=== PATIENT | female | born 1970 | race Caucasian/White ===

== ENCOUNTER 2024-03-25 15:25 | Emergency (ER) | payer OTHER, SELFPAY ==
[2024-03-25 15:42] VITALS: BP 113/67; PULSE 52; TEMP 37.1; O2SAT 99; BMI 23.0
--- NOTE | 2024-03-25 15:48 | XR_ITS ---
The [address] [address] Patient Name: CONRAD QUILES MRN: [id number] date: 1970 Sex: F Assigned Patient Location: ER Current Patient Location: ER Accession/Order Number: [id number] Exam Date: 03/25/2024 16:48 Report Date: 03/25/2024 17:36 At the request of: CARLO STANLEY Procedure: XR ribs RT min 3V w CXR1V EXAM: XR ribs RT min 3V w CXR1V HISTORY: pain right anterior/lateral rib pain. COMPARISON: Chest x-ray 11/17/2011 TECHNIQUE: Upright PA chest. AP, right and left oblique views right RIBS. 6 view series FINDINGS: Chest x-ray demonstrates clear lungs, normal heart size and mediastinum. No pleural effusion or pneumothorax. Elevated right diaphragm similar to previous. No fracture seen. Right rib views demonstrate smooth corticated margins without displaced fracture. No focal bone lesion. Also size ribs. XR/XR ribs RT min 3V w CXR1V IMPRESSION: Negative chest x-ray, no acute findings. Normal right ribs without displaced fracture. Electronically authenticated by: EMIL MCRAE Date: 03/25/2024 17:36
--- NOTE | 2024-03-25 16:48 | ED.EXTPRO1 ---
HPI - Extremity Problem General Chief complaint: Extremity Problem, Nontraumatic Stated complaint: BWC - SIDE PAIN Time Seen by Provider: 03/25/24 16:06 Source: patient Mode of arrival: walk-in Limitations: no limitations History of Present Illness HPI Narrative: The patient presented to the ER after she started having right-sided chest wall pain, almost 3 days ago and 22 March the patient was leaning on the boxes at work when apparently she mentioned that she started after that having pain in the right side of her chest wall whenever she take a deep breath No other complaint of chest pain nausea vomiting or any other concerns Related Data Previous Rx's ?Medication ?Instructions ?Recorded ibuprofen 600 mg tablet 600 mg PO Q8H PRN pain #20 tabs 03/25/24 Allergies Allergy/AdvReac Type Severity Reaction Status Date / Time No Known Drug Allergies Allergy Verified 03/25/24 15:46 Review of Systems ROS Status of ROS 10 or more systems reviewed and unremarkable except as noted in history and below Exam Narrative Exam Narrative: Nurses notes and vital signs reviewed and patient is not hypoxic. General: Well-appearing and in no apparent distress. Skin: Warm, dry, no pallor noted. No rash. Head: Normocephalic, atraumatic. Neck: Supple, non-tender. Eye: Pupils are equal, round and EOMI. No scleral icterus. Ears, Nose, Mouth, and Throat: TM are clear, no nasal mucosal hypertrophy. Oral mucosa is moist, no posterior oropharynx erythema, uvula is mid-line Cardiovascular: Regular Rate and Rhythm without murmur, gallop or rub. Respiratory: No accessory muscle use or respiratory distress. Lungs are clear to auscultation, no wheezing, rales or rhonchi Chest Wall: There is localized tenderness to the right-sided chest wall on the right lower no tenderness palpation of the right upper quadrant or any other concerns and the patient does not have any obvious skin changes due to trauma Back: No midline thoracic or lumbar vertebral tenderness. No CVA tenderness Musculoskeletal: normal ROM, no calf or popliteal tenderness, no lower extremity edema/swelling GI: Abdomen is soft, non-distended. Normal bowel sounds. No masses appreciated. No tenderness to palpation. No rebound, guarding, or rigidity noted. Neurological: A&O x4. No cranial nerve dysfunction observed. No truncal ataxia. Moves all extremities. Sensation intact. Psychiatric: Cooperative and interactive. Normal mood and affect. Constitutional Vital Signs, click to edit/add: Last Vital Signs Temp 98.7 F 03/25/24 15:42 Pulse 52 L 03/25/24 15:42 Resp 16 03/25/24 15:42 BP 113/67 03/25/24 15:42 Pulse Ox 99 03/25/24 15:42 O2 Del Method Room Air 03/25/24 15:42 Course Vital Signs Vital signs: Vital Signs Temperature 98.7 F 03/25/24 15:42 Pulse Rate 52 L 03/25/24 15:42 Respiratory Rate 16 03/25/24 15:42 Blood Pressure 113/67 03/25/24 15:42 Pulse Oximetry 99 03/25/24 15:42 Oxygen Delivery Method Room Air 03/25/24 15:42 Temperature 98.7 F 03/25/24 15:42 Pulse Rate 52 L 03/25/24 15:42 Respiratory Rate 16 03/25/24 15:42 Blood Pressure 113/67 03/25/24 15:42 Pulse Oximetry 99 03/25/24 15:42 Oxygen Delivery Method Room Air 03/25/24 15:42 MDM - Extremity (Nontraumatic) MDM Narrative Medical decision making narrative: The patient was provided with Toradol in the ER X-ray of the right-sided ribs showed no acute pathology The patient was discharged to follow-up with occupational health with ibuprofen as treatment she can go back to work The patient to come back to the ER in case of any concerns Discharge Plan Discharge Stand Alone Forms: Portal Instructions Chief Complaint: Extremity Problem, Nontraumatic Clinical Impression: Muscle pain Patient Disposition: Home, Self-Care Time of Disposition Decision: 18:03 Condition: Good Prescriptions / Home Meds: New ibuprofen 600 mg tablet 600 mg PO Q8H PRN (Reason: pain) Qty: 20 0RF Print Language: Yoruba Instructions: Musculoskeletal Pain (ED), Thoracic Pain (ED) Referrals: [facility] [Outside] - As soon as possible ZELDA CHAPMAN [Primary Care Provider] - 1 week
[2024-03-25] MEDS: KETOROLAC TROMETHAMINE 30 MG/ML VIAL IM (17:00)
[2024-03-25 18:45] VITALS: BP 93/55; PULSE 55; O2SAT 97
== END 2024-03-25 18:47 | disposition home or self-care (01) ==
PROVIDERS: Emergency Provider Emergency Medicine; Family Provider Family Medicine; PCP Family Medicine
DX: R07.89 Other chest pain (principal)
CPT/HCPCS: 71101; 96372; 99284; J1885